=== PATIENT | female | born 1970 | race Caucasian/White ===

== ENCOUNTER 2016-07-08 16:34 | Emergency (ER) | payer OTHER ==
[~2016-07-08 16:34] MED LIST: AMOX TR-K CLV1 EAC4 PO; ATARAX25 MG PO; BENADRYL25 MG PO; CHILDREN'S12.5 MG/5 TOP; COMPAZINE10 MG PO; DEXAMETHASONE4 MG PO; EMLA5 GM TOP; PEPCID AC20 MG PO; PHENERGAN25 M1 PO; RESTORIL15 MG PO; SANCUSO1 EACH TOP; VIBRAMYCIN100 MG PO
[2016-07-08 17:40] LABS: BILIRUBIN NEGATIVE (NEGATIVE); BLOOD NEGATIVE Ery/uL (NEGATIVE); CLARITY CLEAR (CLEAR); COLOR YELLOW (YELLOW); GLUCOSE (U) NORMAL (NORMAL); KETONE (U) NEGATIVE (NEGATIVE); LEUKOCYTES NEGATIVE Leu/uL (NEGATIVE); NITRITE NEGATIVE (NEGATIVE); PROTEIN NEGATIVE (NEGATIVE); SPECIFIC GRAVITY 1.015 (1.001-1.030); UROBILINOGEN 0.2 mg/dL (0.2-1.0); pH 7.5 (5.0-9.0)
[2016-07-08 17:53] LABS: HGB 11.9 g/dl (12.5-16.0); MCH 33.9 pg (25.0-31.0); MCHC 33.1 g/dL (32.0-36.0); MCV 102.6 fL (78.0-100.0); MONOCYTE 2.2 % (0-12); MPV 10.6 fL (6.0-9.5); NEUTROPHIL 74.8 % (41-80); PLT 130 K/uL (150-400); RBC 3.51 M/uL (4.20-5.40); RDW 15.5 % (11.5-14.0)
[2016-07-08 18:07] LABS: LACTIC ACID 0.9 mmol/L (0.5-2.2)
[2016-07-08 18:10] LABS: ALBUMIN 3.7 g/dL (3.5-5.0); BILIRUBIN - TOTAL 0.5 mg/dL (0.1-1.0); CREATININE 0.6 mg/dL (0.5-1.0); GLOBULIN (CALCULATION) 2.2 g/dL (2.2-4.2); POTASSIUM 3.8 mmol/L (3.5-5.1); TOTAL PROTEIN 5.9 g/dL (6.4-8.3)
== END 2016-07-08 19:01 | disposition home or self-care (01) ==
LOC: FER 16:34
PROVIDERS: Emergency Medicine
DX: R50.9 Fever, unspecified (principal); R00.0 Tachycardia, unspecified; R82.90 Unspecified abnormal findings in urine; C50.919 Malignant neoplasm of unspecified site of unspecified female breast; Z88.5 Allergy status to narcotic agent; Z88.8 Allergy status to other drugs, medicaments and biological substances
CPT/HCPCS: 36415; 71020; 80053; 81003; 83605; 85025; 87040; 87088; 87450; 87804; 87899; 93005; J0692

== ENCOUNTER → 2016-09-19 | Day surgery (SDC) | payer OTHER ==
[2016-09-19 09:08] LABS: HCT 38.2 % (37.0-47.0); HGB 12.6 g/dl (12.5-16.0); MCH 35.3 pg (25.0-31.0); MPV 9.7 fL (6.0-9.5); RBC 3.57 M/uL (4.20-5.40); RDW 12.1 % (11.5-14.0); WBC 4.6 K/uL (4.0-10.5)
[2016-09-19 09:37] LABS: ALBUMIN 3.9 g/dL (3.5-5.0); BILIRUBIN - TOTAL 0.2 mg/dL (0.1-1.0); CREATININE 0.6 mg/dL (0.5-1.0); GLOBULIN (CALCULATION) 2.2 g/dL (2.2-4.2); POTASSIUM 3.9 mmol/L (3.5-5.1); TOTAL PROTEIN 6.1 g/dL (6.4-8.3)
== END | disposition home or self-care (01) ==
LOC: FAS 08:45
PROVIDERS: Surgery
DX: C50.911 Malignant neoplasm of unspecified site of right female breast (principal); I87.2 Venous insufficiency (chronic) (peripheral); F32.9 Major depressive disorder, single episode, unspecified; G62.9 Polyneuropathy, unspecified; M51.26 Other intervertebral disc displacement, lumbar region; M19.90 Unspecified osteoarthritis, unspecified site; Z88.5 Allergy status to narcotic agent; Z88.1 Allergy status to other antibiotic agents; Z90.89 Acquired absence of other organs; Z90.49 Acquired absence of other specified parts of digestive tract; Z98.51 Tubal ligation status; Z87.891 Personal history of nicotine dependence; Z92.21 Personal history of antineoplastic chemotherapy; Z83.2 Family history of diseases of the blood and blood-forming organs and certain disorders involving the immune mechanism; Z82.61 Family history of arthritis; Z81.8 Family history of other mental and behavioral disorders; Z83.42 Family history of familial hypercholesterolemia; Z82.49 Family history of ischemic heart disease and other diseases of the circulatory system; Z82.3 Family history of stroke; Z81.1 Family history of alcohol abuse and dependence; Z79.899 Other long term (current) drug therapy; Z98.890 Other specified postprocedural states
CPT/HCPCS: 36415; 80053; 88307; A9541; J1100; J1170; J1885; J2405; J2704; J3010